=== PATIENT | female | born 1990 | race Caucasian/White ===

== ENCOUNTER 2017-02-24 13:48 | Emergency (ER) | payer MEDICAID, OTHER ==
[~2017-02-24 13:48] MED LIST: DICY1TAB26 PO; LORTA5 PO; OMEP20TA PO; ZOFR4TAB3 SL
--- NOTE | 2017-02-24 15:09 | PD ---
HPI Chief Complaint leakage of fluid Date Seen: Feb 24, 2017 Time Seen: 15:01 Travel History International Travel<30 Days: No Contact w/Intl Traveler<30Days: No Known Affected Area: No History of Present Illness HPI This is a 26y/o at 39w3d who presents to the [facility] with c/o leakage of fluid which woke her up at 1130am. She state she has not felt any more leakage of fluid. Denies vaginal bleeding or contractions with reports of active movements. care at [facility], complicated by: 1. H/o thrombocytopenia, stable for some time, per patient 2. abn 1 hr glucose 151, with normal 3 hour glucose Para: 0 : 1 Miscarriage: 0 : 0 History Past Medical History Medical History: Denies Significant Hx Past Surgical History Narrative Surgical [place] teeth extraction age 17, general anesthesia Family History Narrative Family History Mother BRAC +, both breast ca (age 36) and ovarian ca (age 44), age 48 Social History Alcohol Use: No Tobacco Use: No Substance Abuse: No Allergies-Medications (Allergen,Severity, Reaction): Coded Allergies: Codeine (Unverified Allergy, Unknown, Dizziness, 10/30/15) Home Meds Active Scripts Ondansetron (Zofran ODT)4 Mg Tab4 Mg SL Q6H PRN (NAUSEA OR VOMITING) #4 TAB FOR NAUSEA/VOMITING Prov:Jose Angel Hammer MD 10/30/15 Dicyclomine Hcl (Bentyl)20 Mg Tab20 Mg PO Q8 PRN (ABDOMINAL CRAMPING) #20 TAB Prov:Jose Angel Hammer MD 10/30/15 Hydrocodone-Acetaminophen 5-325 mg (Emily 5-325 mg)5 mg/325 mg Tab1 Tab PO Q6H PRN (PAIN) #12 TAB Prov:Jose Angel Hammer MD 10/30/15 Reported Medications Omeprazole 20 mg 20 Mg Tab1 Tab PO DAILY 10/30/15 Review of Systems Except as stated in HPI: all other systems reviewed are Neg Physical Exam Narrative GENERAL: Well-nourished, well-developed patient. SKIN: Warm and dry. HEAD: Normocephalic and atraumatic. EYES: No scleral icterus. No injection or drainage. ENT: No nasal drainage noted. Mucous membranes pink. Airway patent. NECK: Supple, trachea midline. No JVD. CARDIOVASCULAR: Regular rate and rhythm without murmurs, gallops, or rubs. RESPIRATORY: Breath sounds equal bilaterally. No accessory muscle use. BREASTS: Bilateral exam showed no masses , no retractions, no nipple discharge. ABDOMEN/GI: Abdomen soft, non-tender, bowel sounds present, no rebound, no guarding 39w GENITOURINARY: VE: 1/l/p FHT's: Cat I Contractions: none, some irritability EXTREMITIES: No cyanosis or edema. BACK: Nontender without obvious deformity. No CVA tenderness. NEUROLOGICAL: Awake and alert. Motor and sensory grossly within normal limits. Five out of 5 muscle strength in all muscle groups. Normal speech. Data Data Vital Signs Reviewed: Yes [facility] Medical Record Reviewed: Yes Interpretation(s) thrombocytopenia, stable Abn 1 hr glucose, normal 3 hr glucose mother with BRCA positive, h/o breast/ov cancer at age 48 Plan 26y/o at 39w3d who presented for evaluation of PROM. -amnisure negative -reassuring status Diagnosis Diagnosis: Primary Impression: Normal in third trimester Additional Impression: Thrombocytopenia affecting , antepartum Disposition: DISCHARGE HOME Condition: Stable Patient Instructions: Early Labor Signs (ED) Additional Instructions: F/u Primary Ob as scheduled on Sunday Olivia Marshall MD Feb 24, 2017 15:08
== END 2017-02-24 15:18 | disposition home or self-care (01) ==
LOC: HOBED 13:48
DX: O99.113 Other diseases of the blood and blood-forming organs and certain disorders involving the immune mechanism complicating pregnancy, third trimester (principal); D69.6 Thrombocytopenia, unspecified; Z3A.39 39 weeks gestation of pregnancy
CPT/HCPCS: 59025; 84112

== ENCOUNTER 2017-03-02 18:02 | Inpatient (IN) | payer MEDICAID ==
[~2017-03-02] VITALS: Ht 152.4 cm; Wt 68.0 kg
[2017-03-02] MEDS ORDERED: SODIUM CHLOR 0.9% 1000 ML INJ 1,000 ML OTHER PRN (18:31)
[2017-03-02] MEDS ORDERED: SODIUM CHLORIDE 0.9% FLUSH 10 ML FLUSH IV FLUSH PRN (18:45)
[2017-03-02] MEDS: LACTATED RINGER'S 1000 ML INJ 1,000 ML IV SCH (19:15)
[2017-03-02] MEDS: SODIUM CHLORIDE 0.9% FLUSH 10 ML FLUSH IV FLUSH SCH (21:00)
[2017-03-02 22:00] VITALS: RESP 18
[2017-03-02 22:08] LABS: AUTOMATED NEUTROPHIL # 6.6 TH/MM3 (1.8-7.7); BASOPHIL # 0.1 TH/MM3 (0-0.2); BASOPHIL % 0.6 % (0.0-2.0); EOSINOPHIL % 0.4 % (0.0-4.0); HEMATOCRIT 34.1 % (35.0-46.0); HEMO FLAGS DIFF FINAL; LYMPH % 21.5 % (9.0-44.0); MEAN CELL VOLUME 82.5 FL (80.0-100.0); MEAN CORPUSCULAR HGB CONC 35.1 % (32.0-36.0); MONO % 5.3 % (0.0-8.0); NEUT % 72.2 % (16.0-70.0); PLATELET COUNT 144 TH/MM3 (150-450); RED BLOOD COUNT 4.14 MIL/MM3 (4.00-5.30); RED CELL DISTRIBUTION WIDTH 13.3 % (11.6-17.2); WHITE BLOOD COUNT 9.1 TH/MM3 (4.0-11.0)
[2017-03-02 22:15] LABS: BACTERIA, URINE OCC /hpf; BLOOD, URINE SMALL (NEG); COMMENT (UR) CULT NOT INDICATED; CULTURE IF INDICATED CULT NOT INDICATED; GLUCOSE,URINE NEG (NEG); KETONE, URINE NEG (NEG); NITRITE,URINE NEG (NEG); PH, URINE 6.5 (5.0-8.5); SQUAMOUS EPITHELIAL CELL URINE 4 /hpf (0-5); URINE COLOR YELLOW (YELLW/STRAW)
[2017-03-02] MEDS ORDERED: MISOPROSTOL 25 MCG SUPP VAGINAL PRN (22:45)
[2017-03-02] MEDS ORDERED: OXYTOCIN 30 UNITS/NS 500ML PREMIX IV SCH (23:00)
[2017-03-03] VITALS (93 sets, daily range): BP systolic 97–138; BP diastolic 43–94; PULSE 58–94; RESP 16–20; TEMP 97.7–98.7; O2SAT 95–99
[2017-03-03] MEDS: LACTATED RINGER'S 1000 ML INJ 1,000 ML IV SCH ×3 (02:31→13:37)
[2017-03-03] MEDS ORDERED: fentaNYL 2MCG-BUPIV 0.125% INJ 100 ML ONE (03:27)
[2017-03-03] MEDS: SODIUM CHLORIDE 0.9% FLUSH 10 ML FLUSH IV FLUSH SCH (09:00)
[2017-03-03] MEDS ORDERED: ONDANSETRON HCL 4 MG/2 ML VIAL ONE (13:32)
[2017-03-03] MEDS ORDERED: ONDANSETRON HCL 4 MG/2 ML VIAL IV PUSH ONE (13:45)
[2017-03-03] MEDS ORDERED: OXYTOCIN 10 UNIT/ML AMP ONE (15:10)
[2017-03-03] MEDS ORDERED: ceFAZolin INJ 1,000 MG VIAL ONE ×2 (15:10→15:21)
[2017-03-03] MEDS ORDERED: METHYLERGONOVINE MALEATE 0.2 MG/ML VIAL ONE (15:42)
--- NOTE | 2017-03-03 16:13 | PD.OB.DELI ---
Procedure Note Section Procedure Performed by Thony Tsang Procedure: Primary Low Transverse Sec Indication for delivery: malposition Informed consent obtained: For anesthesia, For procedure Confirmed correct: Patient, Procedure, Site, Time-out taken Anesthesia: Epidural Medication prior to procedure: As documented in eMAR Monitoring during procedure: Blood pressure monitoring, quality assurance monitor chassis, doppler, Pulse oximetry Urinary catheter: Inserted using sterile technique, To dependent drainage Sterile preparation: Duraprep, In usual fashion Position: Supine with wedge to right side, Supine with safety belt applied Operative Features Skin Incision: Pfannenstiel Uterine Incision: Low transverse w/knife / scissors Membranes Ruptured: Previously Presentation: Occiput posterior Infant: Male One Minute : 8 Five Minute : 9 Weight: 83 9oz Status of infant: Viable Medications: Antibiotics, Oxytocin, Ergot derivatives Estimated blood loss: 700 Procedure tolerated: Well Maternal Condition: Stable Condition: Stable Thony Tsang MD Mar 03, 2017 16:13
[2017-03-03] MEDS ORDERED: KETOROLAC TROMETHAMINE 60 MG/2 ML (IM) VIAL IM PRN (16:15)
[2017-03-03] MEDS ORDERED: SODIUM CHLORIDE 0.9% FLUSH 10 ML FLUSH IV FLUSH PRN (16:15)
[2017-03-03] MEDS ORDERED: ACETAMINOPHEN 1000 MG/100 ML VIAL IV ONE ×2 (16:15→16:42)
[2017-03-03] MEDS ORDERED: ONDANSETRON HCL 4 MG/2 ML VIAL IV PUSH PRN (16:15)
[2017-03-03] MEDS ORDERED: ACETAMINOPHEN/HYDROcodone 325 MG/5 MG TAB PO PRN ×2 (16:15)
[2017-03-03] MEDS ORDERED: SIMETHICONE 80 MG CHEWABLE TAB PO PRN (16:15)
[2017-03-03] MEDS ORDERED: OXYTOCIN 30 UNITS-500ML PREMIX 500 ML IV ONE (16:15)
[2017-03-03] MEDS ORDERED: MORPHINE SULFATE PF 5 MG/10 ML VIAL ONE (16:17)
[2017-03-03] MEDS ORDERED: LACTATED RINGER'S 1,000 ML BAG IV ONE (16:57)
[2017-03-03] MEDS ORDERED: EPIDURAL-NO SYSTEMIC NARCOTICS PRN (17:45)
[2017-03-03] MEDS ORDERED: EPIDURAL-NALOXONE HCL 0.4 MG/ML AMP IV PRN (17:45)
[2017-03-03] MEDS ORDERED: EPIDURAL-DO NOT ADMINISTER ANTICOAGULANTS PRN (17:45)
[2017-03-03] MEDS ORDERED: EPIDURAL-DIPHENHYDRAMINE HCL 50 MG CAP PO PRN (17:45)
[2017-03-03] MEDS ORDERED: EPIDURAL-DIPHENHYDRAMINE HCL 50 MG/ML VIAL IV PUSH PRN (17:45)
[2017-03-03] MEDS ORDERED: SODIUM CHLORIDE 0.9% FLUSH 10 ML FLUSH IV FLUSH SCH (21:00)
[2017-03-03] MEDS ORDERED: LACTATED RINGER'S 1000 ML INJ 1,000 ML IV SCH (21:13)
[2017-03-04] VITALS: BP 111/64; PULSE 74; RESP 16; TEMP 98
[2017-03-04] MEDS ORDERED: OXYTOCIN 30 UNITS-500ML PREMIX 500 ML IV PRN (02:15)
[2017-03-04] MEDS: DOCUSATE SODIUM 50 MG/SENNA 8.6 MG TAB PO PRN (04:58)
[2017-03-04] MEDS: IBUPROFEN 600 MG TAB PO PRN ×3 (04:58→19:20)
[2017-03-04 05:09] LABS: AUTOMATED NEUTROPHIL # 11.5 TH/MM3 (1.8-7.7); BASOPHIL % 0.2 % (0.0-2.0); HEMATOCRIT 34.1 % (35.0-46.0); HEMO FLAGS DIFF FINAL; LYMPH % 13.1 % (9.0-44.0); LYMPHOCYTE # 1.9 TH/MM3 (1.0-4.8); MEAN CELL VOLUME 83.2 FL (80.0-100.0); MEAN CORPUSCULAR HEMOGLOBIN 27.5 PG (27.0-34.0); MEAN CORPUSCULAR HGB CONC 33.1 % (32.0-36.0); MONO % 8.8 % (0.0-8.0); NEUT % 77.9 % (16.0-70.0); PLATELET COUNT 115 TH/MM3 (150-450); RED CELL DISTRIBUTION WIDTH 13.4 % (11.6-17.2); WHITE BLOOD COUNT 14.7 TH/MM3 (4.0-11.0)
--- NOTE | 2017-03-04 08:15 | MP ---
cc: BRISA GOSS MD DATE OF SURGERY: 03/03/2017 PREOPERATIVE DIAGNOSIS: Term intrauterine , cephalopelvic disproportion. PROCEDURE: Primary low transverse section, delivery of viable male . POSTOPERATIVE DIAGNOSIS Term intrauterine , cephalopelvic disproportion. SURGEON: Dr. Radha Goss ANESTHESIA: Epidural. ESTIMATED BLOOD LOSS: 700 cc. DRAINS: Conde to gravity OPERATIVE FINDINGS Male infant was delivered from LOP position. Apgars were 8 at 1 minute, 9 at 5. Baby weighed 8 pounds 9 ounces. Three vessel cord intact, placenta, clear fluid. INDICATIONS FOR PROCEDURE: The patient was brought in electively, at the time was dorothea normally on her own. The patient required augmentation with Pitocin. She received an epidural. Despite adequate uterine contractions, the patient failed to progress beyond 4 cm. Arrest of descent was determined and section was elected. The patient signed consent for the above. DESCRIPTION OF PROCEDURE: The patient was taken to the operating room in stable condition, received Ancef two grams. She had a reinforcement of her epidural which was working excellent. She was on the operating room table, prepped and draped. Conde was previously inserted sterilely, draining clear urine. Sequentials were placed in the lower extremities for VTE prophylaxis. Time-out was conducted, after she is prepped and draped, agreed by all present in the room. Pfannenstiel incision was made just above the pubic symphysis in a slightly elliptical fashion, through the skin down through the subcutaneous layer identifying the fascia and then scoring the fascia laterally dissecting the fascia sharply from the rectus muscle, the rectus in the midline, identifying the peritoneum, opening it sharply and then identifying the lower uterine segment which is normal in appearance. Transverse incision was made in the lower uterine segment, entering the uterine cavity, demonstrated clear fluid. The incision was extended bluntly. Retractors were removed. The vertex was delivered. Oropharyngeal suction was performed. The was delivered on the operative field with good tone and cry. The cord was doubly clamped and cut and the infant was taken to the isolette by the nurse present. Cord samples obtained for typing. Placenta was then removed intact with trailing membranes. The uterus was explored. No retained tissue. Dorothea normally. Closure of the uterus required two layers, the first with a running locking suture of 0 Monocryl followed by a second imbricating suture of 0 Monocryl. Intermittent uterine atony was identified during the closure and the patient was given Methergine 0.2 milligrams to assist in hemostasis. The pelvis was irrigated. No active bleeding. No hematoma. The peritoneum was then closed with a running suture of 2-0 Monocryl after full count was made and correct. Muscle bellies were reapproximated loosely with interrupted mattress suture x1. The fascia was then closed with 0 Vicryl x1, with good result. The subcutaneous layer was irrigated. Any small bleeders were cauterized and the space was reapproximated with 2-0 Monocryl. [place] were used to close the skin. Dressing was applied. The final count is correct. The patient was stable. She was taken to the Recovery Room on room air. MD DARIEL Yuen/JACKI /4:20 PM /7:35 AM
[2017-03-04 09:00] VITALS: BP 98/58; PULSE 64; RESP 16; TEMP 98.2
[2017-03-04] MEDS: SODIUM CHLORIDE 0.9% FLUSH 10 ML FLUSH IV FLUSH SCH (09:00)
--- NOTE | 2017-03-04 11:06 | HHI.OB ---
Subjective Post Operative Day: 1 Remarks POD#1, Stable, doing well Objective Vitals/I&O Vital Signs Date Time Temp Pulse Resp B/P Pulse Ox O2 Delivery O2 Flow Rate FiO2 03/04/17 00:00 98.0 74 16 111/64 03/03/17 21:45 98.3 68 16 03/03/17 21:45 126/79 03/03/17 18:20 98.2 71 20 130/76 03/03/17 17:30 76 17 132/84 95 03/03/17 17:20 98.7 03/03/17 17:15 74 18 133/94 95 03/03/17 17:05 72 17 138/90 95 03/03/17 16:49 78 17 130/56 98 03/03/17 16:32 135/71 03/03/17 16:32 71 16 99 03/03/17 16:20 113/67 03/03/17 16:20 97.8 76 18 98 03/03/17 15:01 64 107/52 03/03/17 14:30 64 109/55 03/03/17 14:15 17 03/03/17 14:01 67 106/48 03/03/17 13:31 98.4 18 03/03/17 13:30 86 127/71 03/03/17 13:00 86 03/03/17 13:00 71 122/69 03/03/17 12:45 17 03/03/17 12:30 67 114/61 03/03/17 12:30 76 03/03/17 12:10 83 03/03/17 12:05 71 03/03/17 12:00 69 117/65 03/03/17 12:00 79 03/03/17 11:45 17 03/03/17 11:40 79 03/03/17 11:35 67 03/03/17 11:30 93 03/03/17 11:30 83 119/72 Result Diagram: 03/04/17 0455 Objective Remarks GENERAL: Well-nourished, well-developed patient. CARDIOVASCULAR: Regular rate and rhythm without murmurs, gallops, or rubs. RESPIRATORY: Breath sounds equal bilaterally. No accessory muscle use. ABDOMEN/GI: Abdomen soft, non-tender, bowel sounds present. Incision: Clean, dry and intact. Fundus: Firm, non-tender at umbilicus. GENITOURINARY: Light to moderate bleeding. EXTREMITIES: No cyanosis or edema, non-tender, without signs of DVT. Medications and IVs Current Medications Medications (Trade) Dose Ordered Sig/Bang Route Start Time Stop Time Status Last Admin (Lr 1000 ml Inj) 1,000 ml @ 125 mls/hr Q8H IV 03/02/17 18:31 03/03/17 13:37 (NS Flush) 2 ml BID IV FLUSH 03/02/17 21:00 03/02/17 21:00 Sodium Chloride 2 ml 2 ml UNSCH PRN IV FLUSH 03/02/17 18:45 Oxytocin 500 ml @ 0 mls/hr TITRATE IV 03/02/17 23:00 03/03/17 04:39 (Lr 1000 ml Inj) 1,000 ml @ 100 mls/hr Q10H IV 03/03/17 21:13 03/04/17 17:12 03/04/17 01:34 (Mylicon Chew) 80 mg QID PRN PO 03/03/17 16:15 (Motrin) 600 mg Q6H PRN PO 03/03/17 16:15 03/04/17 04:58 (Toradol Inj) 30 mg Q6H PRN IM 03/03/17 16:15 03/04/17 16:14 ([place]ace) 2 tab Q12H PRN PO 03/03/17 16:15 03/04/17 04:58 (M-M-R Ii Inj) 0.5 ml ONCE ONCE SQ 03/04/17 16:00 03/04/17 16:01 (Boostrix Inj) 0.5 ml ONCE ONCE IM 03/04/17 16:00 03/04/17 16:01 (Zofran Inj) 4 mg Q6H PRN IV PUSH 03/03/17 16:15 ([place] 5-325 Mg) 1 tab Q4H PRN PO 03/03/17 16:15 ([place] 5-325 Mg) 2 tab Q6H PRN PO 03/03/17 16:15 Miscellaneous Information NO SYSTEMIC NARCOTICS TO BE GIVEN FO... UNSCH PRN .XX 03/03/17 17:45 03/04/17 17:44 (Narcan Inj) 0.4 mg UNSCH PRN IV 03/03/17 17:45 03/04/17 17:44 (Benadryl Inj) 25 mg Q6H PRN IV PUSH 03/03/17 17:45 03/04/17 17:44 (Benadryl) 50 mg Q6H PRN PO 03/03/17 17:45 03/04/17 17:44 Miscellaneous Information ALL NURSING DEPARTMENTS UNSCH PRN .XX 03/03/17 17:45 03/04/17 17:44 Assessment/Plan Assessment and Plan POD#1, Doing well, stable Discharge Planning Plan POD#3 Attending Attestation seen by Thony Langford MD Mar 04, 2017 11:06
--- NOTE | 2017-03-04 11:07 | HHI.DS ---
Admission Date Mar 02, 2017 at 18:02 Admitting Diagnosis Diagnosis: : Primary : Male Pt Condition on Discharge: Good Discharge Disposition: Discharge Home Discharge Instructions Diet Instructions: As Tolerated, No Restrictions Activities You Can Perform: Shower Only-No Bath Activities to Avoid: Prolonged Standing, Strenuous Activity, Driving, Sexual Activity Thony Tsang MD Mar 04, 2017 11:07
[2017-03-04 11:45] VITALS: BP 113/69; PULSE 68; RESP 16; TEMP 98.1
[2017-03-04] MEDS ORDERED: DIPHTH/TETANUS/ACEL PERTUSSIS (BOOSTER) 0.5 ML VIAL/PFS IM ONE (16:00)
[2017-03-04] MEDS ORDERED: MEASLES, MUMPS, RUBELLA VACCINE 0.5 ML VIAL SQ ONE (16:00)
[2017-03-05] MEDS: IBUPROFEN 600 MG TAB PO PRN ×4 (03:00→22:00)
--- NOTE | 2017-03-05 07:38 | HHI.OB ---
Subjective Post Operative Day: 2 Remarks no complaints. no flatus yet Objective Vitals/I&O Vital Signs Date Time Temp Pulse Resp B/P Pulse Ox O2 Delivery O2 Flow Rate FiO2 03/04/17 11:45 98.1 68 16 113/69 03/04/17 09:00 98.2 64 16 98/58 Result Diagram: 03/04/17 0455 Objective Remarks GENERAL: Well-nourished, well-developed patient. CARDIOVASCULAR: Regular rate and rhythm without murmurs, gallops, or rubs. RESPIRATORY: Breath sounds equal bilaterally. No accessory muscle use. ABDOMEN/GI: Abdomen soft, non-tender, bowel sounds present. Incision: Clean, dry and intact.eda Fundus: Firm, non-tender at umbilicus. GENITOURINARY: Light to moderate bleeding. EXTREMITIES: No cyanosis or edema, non-tender, without signs of DVT. Medications and IVs Current Medications Medications (Trade) Dose Ordered Sig/Bang Route Start Time Stop Time Status Last Admin (Lr 1000 ml Inj) 1,000 ml @ 125 mls/hr Q8H IV 03/02/17 18:31 03/03/17 13:37 (NS Flush) 2 ml BID IV FLUSH 03/02/17 21:00 03/02/17 21:00 Sodium Chloride 2 ml 2 ml UNSCH PRN IV FLUSH 03/02/17 18:45 (Pitocin 30 Units-NS 500 ml Premix) 500 ml @ 0 mls/hr TITRATE IV 03/02/17 23:00 03/03/17 04:39 (Mylicon Chew) 80 mg QID PRN PO 03/03/17 16:15 (Motrin) 600 mg Q6H PRN PO 03/03/17 16:15 03/05/17 03:00 (Santa-Colace) 2 tab Q12H PRN PO 03/03/17 16:15 03/04/17 04:58 (Zofran Inj) 4 mg Q6H PRN IV PUSH 03/03/17 16:15 ([place] 5-325 Mg) 1 tab Q4H PRN PO 03/03/17 16:15 ([place] 5-325 Mg) 2 tab Q6H PRN PO 03/03/17 16:15 Assessment/Plan Assessment and Plan POD#2, Doing well, stable baby needs circ prior to discharge Discharge Planning Plan POD#3 Xin Rendon MD Mar 05, 2017 07:38
[2017-03-05] MEDS: SODIUM CHLORIDE 0.9% FLUSH 10 ML FLUSH IV FLUSH SCH (09:00)
--- NOTE | 2017-03-05 09:01 | MH ---
cc: BRISA GOSS M.D. DATE OF ADMISSION 03/02/2017 DATE OF 1990 CHIEF COMPLAINT Admission for induction of labor at term, uncomplicated . PATIENT HISTORY The patient is a 26-year-old female 1, para 0, last menstrual period was May 24, 2016. Estimated date confinement is February 28, 2017. She is 40 weeks and two days, was evaluated for routine care after reviewing ultrasound findings, diminished amniotic fluid volume was noted. The patient was given the option of induction of labor which she consented for. COURSE The patient had a history of a marginal low platelet count of 145,000 in July and was stable throughout. Repeat platelet count was 141,000 on November 2016. ALLERGIES THE PATIENT HAS AN ALLERGY TO CODEINE. FAMILY HISTORY Notable for the patient's ___mother had breast cancer diagnosed in her mid 30s and is at age 48. MEDICATIONS Current medications include vitamins. SOCIAL HISTORY She works as retail merchandising specialist. She is . Denies use of alcohol, tobacco or illicit substances. PHYSICAL EXAM The patient is a well-appearing well-nourished female in no distress. VITAL SIGSN: Stable. Blood pressures 100/70. She weighs 150 pounds. She is 5 feet even. HEENT: Shows no adenopathy or thyromegaly. LUNGS: Clear in all king. CARDIAC: Regular rate and rhythm with no murmur, rub or gallop. ABDOMEN: Gravid, soft, and nontender midline. Estimated weight is 7-1/2 pounds, vertex presentation by Kevin's was noted. heart rate was documented the 140s. PELVIC: The patient has a slightly narrow pubic arch, but otherwise gynecoid pelvis. The cervix is 50% posterior, soft midline, fingertip -2 station intact. EXTREMITIES: Symmetrical, full range of motion. No cyanosis, clubbing or edema. NEUROLOGIC: Exam is intact. ASSESSMENT The patient is 40 weeks and three days elected for induction of labor at term. Group B Strep status is negative, uncomplicated course, marginal low platelet count will be reassessed upon admission with the admission labs. MD DARIEL Yuen/TRESSA /12:12 PM /8:58 AM [place]
[2017-03-05] MEDS: LACTATED RINGER'S 1000 ML INJ 1,000 ML IV SCH (10:31)
[2017-03-05] MEDS: DOCUSATE SODIUM 50 MG/SENNA 8.6 MG TAB PO PRN (12:09)
[2017-03-05] MEDS: ACETAMINOPHEN 325 MG TAB PO PRN ×2 (15:29→19:46)
[2017-03-05 20:35] VITALS: BP 116/71; PULSE 62; RESP 16; TEMP 98.8
[2017-03-06] MEDS: ACETAMINOPHEN 325 MG TAB PO PRN ×3 (00:28→10:41)
[2017-03-06] MEDS: IBUPROFEN 600 MG TAB PO PRN ×2 (04:22→10:42)
[2017-03-06 07:19] VITALS: BP 101/61; PULSE 57; RESP 20; TEMP 97.9
--- NOTE | 2017-03-06 09:04 | HHI.OB ---
Subjective Post Operative Day: 3 Remarks s/p primary LTCD for CPD/arrest of dilation Objective Vitals/I&O Vital Signs Date Time Temp Pulse Resp B/P Pulse Ox O2 Delivery O2 Flow Rate FiO2 03/05/17 20:35 98.8 03/05/17 20:35 62 16 116/71 Result Diagram: 03/04/17 0455 Objective Remarks GENERAL: Well-nourished, well-developed patient. CARDIOVASCULAR: Regular rate and rhythm without murmurs, gallops, or rubs. RESPIRATORY: Breath sounds equal bilaterally. No accessory muscle use. ABDOMEN/GI: Abdomen soft, non-tender, bowel sounds present. Incision: Clean, dry and intact.eda in place Fundus: Firm, non-tender at umbilicus. GENITOURINARY: Light bleeding. EXTREMITIES: No cyanosis or edema, non-tender, without signs of DVT. Medications and IVs Current Medications Medications (Trade) Dose Ordered Sig/Bang Route Start Time Stop Time Status Last Admin (Lr 1000 ml Inj) 1,000 ml @ 125 mls/hr Q8H IV 03/02/17 18:31 03/03/17 13:37 (NS Flush) 2 ml BID IV FLUSH 03/02/17 21:00 03/02/17 21:00 Sodium Chloride 2 ml 2 ml UNSCH PRN IV FLUSH 03/02/17 18:45 (Pitocin 30 Units-NS 500 ml Premix) 500 ml @ 0 mls/hr TITRATE IV 03/02/17 23:00 03/03/17 04:39 (Mylicon Chew) 80 mg QID PRN PO 03/03/17 16:15 03/06/17 00:29 (Motrin) 600 mg Q6H PRN PO 03/03/17 16:15 03/06/17 04:22 (Santa-Colace) 2 tab Q12H PRN PO 03/03/17 16:15 03/05/17 12:09 (Zofran Inj) 4 mg Q6H PRN IV PUSH 03/03/17 16:15 ([place] 5-325 Mg) 1 tab Q4H PRN PO 03/03/17 16:15 ([place] 5-325 Mg) 2 tab Q6H PRN PO 03/03/17 16:15 (Tylenol) 650 mg Q4H PRN PO 03/05/17 15:00 03/06/17 04:22 Assessment/Plan Assessment and Plan POD#3 doing well d/c home today office f/u 10-14d wound care discussed s/p circ this AM Discharge Planning routine, today aKthy Clarke MD Mar 06, 2017 09:03
[2017-03-06] MEDS ORDERED: SENN1TAB PO (09:05)
[2017-03-06] MEDS ORDERED: HYDR-3516 PO (09:05)
[2017-03-06] MEDS ORDERED: IBUP-232 PO (09:05)
== END 2017-03-06 13:58 | disposition home or self-care (01) | DRG 766 ==
LOC: H2EA 18:02 → H1EA 03-03 17:45
PROVIDERS: ADMIT Obstetrics & Gynecology; ATTEND Obstetrics & Gynecology
PROC: 10D00Z1 Extraction of Products of Conception, Low, Open Approach (ICD-10-PCS; principal; 2017-03-02)
PROC: 3E0R3CZ (ICD-10-PCS; 2017-03-02)
PROC: 00HU33Z Insertion of Infusion Device into Spinal Canal, Percutaneous Approach (ICD-10-PCS; 2017-03-02)
DX: O32.9XX0 Maternal care for malpresentation of fetus, unspecified, not applicable or unspecified (principal); O62.1 Secondary uterine inertia; Z37.0 Single live birth; Z3A.40 40 weeks gestation of pregnancy
CPT/HCPCS: 59025; 81001; 85025; 86900; 86901; 90715; J0131; J0690; J2210; J2274; J2405; J2590; J7120